=== PATIENT | female | born 1980 | race Caucasian/White ===

== ENCOUNTER 2019-01-25 18:31 | Emergency (ER) | payer MEDICAID ==
[~2019-01-25] VITALS: Ht 172.7 cm; Wt 74.5 kg
[~2019-01-25 18:31] MED LIST: IBUPROFEN600 MG PO; NIFEDIPINE ER30 MG PO; PERCOCET 5-3251 TAB PO; PRENATAL COMPLE1 TAB PO
[2019-01-25 18:57] VITALS: Ht 172.7 cm; Wt 74.5 kg
[2019-01-25 19:25] LABS: BASOPHILS 0.1 % (0-2); EOSINOPHILS 0.4 % (0-7); HEMATOCRIT 34.8 % (36.0-48.0); HEMOGLOBIN 11.3 g/dL (12-16); IMMATURE GRANULOCYTES 0.3 % (0-5); LYMPHOCYTES 22.4 % (15-50); MCH 28.6 pg (26.0-34.0); MCHC 32.5 g/dL (31.0-37.0); MCV 88.1 fL (80.0-100.0); MONOCYTES 8.9 % (2-11); NEUTROPHILS 67.9 % (40-80); PLATELET COUNT 224 10x3/uL (130-400); RBC 3.95 10x6/uL (4.00-5.40); RDW 15.1 % (11.5-14.5)
[2019-01-25 19:49] LABS: ALBUMIN 3.5 g/dL (3.4-5.0); ALKALINE PHOSPHATASE 47 U/L (46-116); ALT (SGPT) 48 U/L (10-68); BILIRUBIN - TOTAL 0.14 mg/dL (0.2-1.3); CALC OSMOLALITY 279 mosm/kg (275-300); CALCIUM 8.7 mg/dL (8.5-10.1); CARBON DIOXIDE 26.9 mmol/L (21.0-32.0); CHLORIDE - SERUM 105 mmol/L (98-107); CREATININE - SERUM 0.9 mg/dL (0.6-1.3); GLUCOSE 86 mg/dL (74-106); POTASSIUM - SERUM 3.8 mmol/L (3.5-5.1); PROTEIN - SERUM 7.4 g/dL (6.4-8.2); SODIUM 140 mmol/L (136-145); UREA NITROGEN 17 mg/dL (7-18); eGFR NON AFRICAN AMERICAN 75 mL/min (90-120)
[2019-01-25] MEDS ORDERED: ALBUTEROL SULF8.5 GM INH (22:12)
[2019-01-25] MEDS ORDERED: OMNICEF300 MG PO (22:12)
[2019-01-25] MEDS ORDERED: PHENERGAN DM SYR5 ML PO (22:13)
[2019-01-25 22:50] VITALS: BP 149/100
== END 2019-01-25 22:50 | disposition home or self-care (01) ==
LOC: D.ER 18:31
PROVIDERS: Family Medicine
DX: J40 Bronchitis, not specified as acute or chronic (principal); J01.90 Acute sinusitis, unspecified; R09.89 Other specified symptoms and signs involving the circulatory and respiratory systems

== ENCOUNTER 2019-08-13 21:09 | Emergency (ER) | payer MEDICAID ==
[~2019-08-13] VITALS: Ht 172.7 cm; Wt 74.5 kg
[~2019-08-13 21:09] MED LIST changes: +ALBUTEROL SULF8.5 GM INH; +OMNICEF300 MG PO; +PHENERGAN DM SYR5 ML PO
[2019-08-13 21:14] VITALS: Ht 172.7 cm; Wt 74.5 kg
[2019-08-13 21:51] VITALS: BP 122/74
== END 2019-08-13 21:56 | disposition home or self-care (01) ==
LOC: D.ER 21:09
DX: S61.511A Laceration without foreign body of right wrist, initial encounter (principal); W22.8XXA Striking against or struck by other objects, initial encounter; Y93.9 Activity, unspecified; Y92.9 Unspecified place or not applicable; Y99.0 Civilian activity done for income or pay

== ENCOUNTER 2020-06-10 10:32 | Emergency (ER) | payer MEDICAID ==
[2020-06-10 10:50] VITALS: Ht 172.7 cm
[2020-06-10] MEDS ORDERED: VISTARIL50 MG PO (11:06)
[2020-06-10] MEDS ORDERED: STERAPRED DS 1210 MG PO (11:06)
[2020-06-10] MEDS ORDERED: [UNRECOGNIZED DRUG - OTHER] TOPICAL (11:06)
[2020-06-10] MEDS ORDERED: KEFLEX500 MG PO (11:16)
[2020-06-10] MEDS ORDERED: PREDNISONE50 MG PO (13:17)
[2020-06-10 13:46] VITALS: BP 128/72
== END 2020-06-10 13:49 | disposition home or self-care (01) ==
LOC: D.ER 10:32
DX: R21 Rash and other nonspecific skin eruption (principal); L23.7 Allergic contact dermatitis due to plants, except food